=== PATIENT | male | born 1975 | race Caucasian/White ===

== ENCOUNTER → 2017-03-29 | Outpatient (CLI) | payer MEDICAID ==
--- NOTE | 2017-03-29 11:51 | FL ---
EXAMINATION TYPE: FL barium swallow w video DATE OF EXAM: 03/29/2017 MODIFIED SWALLOW / DEGLUTITION STUDY CLINICAL HISTORY: Dysphagia. GERD per order. Patient feels food is getting stuck upper esophagus. TECHNIQUE: Deglutition study is performed utilizing thin liquid barium, honey and nectar thick liqui d barium, barium thick applesauce, and barium coated cracker. A total 56 seconds of fluoroscopic time was utilized during procedure. 10 cine sequences are performed. 0 images are sent to PACS for interp retation. COMPARISON: None. FINDINGS: The oral and pharyngeal phases show satisfactory initiation and propagation with all modali ties tested. Normal mastication is seen with solid modalities tested. There is no evidence of penet ration or aspiration with any modality tested. No significant pharyngeal residue was appreciated. IMPRESSION: Normal deglutition study. Please refer to speech therapist notes for further details if necessary.
--- NOTE | 2017-03-29 11:53 | FL ---
EXAMINATION TYPE: FL UGI w esophagus DATE OF EXAM: 03/29/2017 COMPARISON: Abdominal x-ray and CT March 29, 2013. HISTORY: Dysphagia with heartburn and reflux. Symptoms of feeling food getting stuck upper esophagus for several weeks per patient. No improvement on reflux medication. TECHNIQUE: A double contrast UGI study is performed. A total of 49 seconds of fluoroscopic time was utilized during procedure. 26 spot images are obtained during procedure. FINDINGS: Photographic Reproduction Technician image of the abdomen shows no gross abnormality. The esophagus shows satisfactory motility and emptying into the stomach. No evidence of significant fixed hiatal hernia or stricture noted. Small sliding hiatal hernia is seen during flat prone imagin g. No abnormal outpouching or diverticulum identified. The stomach shows satisfactory distensibility, peristalsis, and mucosal folds. No evidence of any ma ss or ulcer disease. No significant gastroesophageal reflux was seen during real time performance of this study. The duodenal bulb, sweep, and proximal small bowel loops are unremarkable. IMPRESSION: No significant finding is seen to account for patient's symptoms with particular attentio n to the upper esophagus at area of patient concern.
== END | disposition home or self-care (01) ==
LOC: RADFLMAIN 10:11
PROVIDERS: ATTEND Nurse Practitioner Family
DX: R47.02 Dysphasia (principal); K21.9 Gastro-esophageal reflux disease without esophagitis; R13.10 Dysphagia, unspecified
CPT/HCPCS: 74230; 74240

== ENCOUNTER 2017-05-11 11:40 | Day surgery (SDC) | payer MEDICAID ==
[2017-05-09 09:55] VITALS: BMI 29.9
[~2017-05-11 11:40] MED LIST: LACTATED RINGERS 1,000 ML IV SCH
[2017-05-11 12:38] VITALS: RESP 16; TEMP 98.5
[2017-05-11] MEDS ORDERED: LIDOCAINE 1% 20 ML VIAL (10MG/ML) FOR IV START INTRADERMA ONE (12:44)
[2017-05-11] MEDS ORDERED: PROPOFOL 10 MG/ML 20 ML VIAL IV ONE (13:17)
--- NOTE | 2017-05-11 13:50 | P.PCN ---
Date of Procedure: 05/11/17 Procedure(s) Performed: Procedure: Esophagogastroduodenoscopy and biopsy. Preoperative diagnosis: Dysphagia. Postoperative diagnosis: Small sliding hiatal hernia with no obvious esophagitis or complicated reflux disease. Mild antral gastritis. Multiple biopsies obtained from the duodenum, antrum and esophagus. Operation and sedation: Was provided by anesthesia. Brief clinical history: The patient is a 42-year-old male who is scheduled for this evaluation because of issues with dysphagia that has been experiencing for the last few months with no alarm symptoms. His barium evaluation was negative. This evaluation is to assess for esophagitis, complicated reflux disease or other pathology. Procedure: With the patient on his left lateral decubitus position and after informed consent and adequate sedation, I passed the Olympus-GIF 160 video upper endoscope through the cricopharyngeus down the esophagus. The esophagus did not show any obvious erosions or ulcers. There were no strictures or Conrad's esophagus. There was a small sliding hiatal hernia then the endoscope was passed into the stomach which was insufflated with air and inspected in detail including the retroflex view in the cardia. There was some mottling and erythema in the antrum but there were no ulcers or bleeding. Pyloric channel did not show any ulcers. Duodenal bulb, post bulbar area and descending duodenum appeared within normal limits. Because of his symptoms, I obtained biopsies from the duodenum, antrum and esophagus then the endoscope was withdrawn. The patient tolerated the procedure well. Plan: The patient was reassured. Will await biopsy results and make further recommendations based on his course and biopsy results. He will follow up with you as planned.
[2017-05-11 14:03] VITALS: PULSE 80
[2017-05-11 14:17] VITALS: BP 143/97
== END 2017-05-11 14:24 | disposition home or self-care (01) ==
LOC: ORWHC2ENDO 11:40
DX: K31.9 Disease of stomach and duodenum, unspecified (principal); K44.9 Diaphragmatic hernia without obstruction or gangrene; R13.10 Dysphagia, unspecified; K21.0 Gastro-esophageal reflux disease with esophagitis; Z79.899 Other long term (current) drug therapy; Z88.6 Allergy status to analgesic agent; Z88.0 Allergy status to penicillin; Z91.013 Allergy to seafood
CPT/HCPCS: 88305; 43239; J2704

== ENCOUNTER 2017-09-15 13:56 | Emergency (ER) | payer MEDICAID ==
[2017-09-15 14:16] VITALS: TEMP 98.4
--- NOTE | 2017-09-15 15:17 | ED ---
General Adult HPI - General Chief complaint: Eye Problems Stated complaint: left eye visual disturbances Time Seen by Provider: 09/15/17 15:16 Source: patient, RN notes reviewed, old records reviewed Mode of arrival: ambulatory Limitations: no limitations - History of Present Illness Initial comments: This is a 42-year-old male the ER for evaluation of alteration of vision. Left eye vision issues. Patient has no prior history of similar complaint. Patient has had halo sales in his left eye feels that been on-and-off. No headaches. No loss of vision. No pain in his left eye. No trauma. Patient does not look contacts. No fevers - Related Data Home Medications Medication Instructions Recorded Confirmed Ranitidine HCl [Zantac] 150 mg PO DAILY PRN 05/09/17 09/15/17 Ibuprofen [Motrin Ib] 400 mg PO Q6H PRN 09/15/17 09/15/17 Allergies Allergy/AdvReac Type Severity Reaction Status Date / Time iodine Allergy Unknown Verified 09/15/17 15:25 Penicillins Allergy Rash/Hives Verified 09/15/17 15:25 shellfish derived [Shellfish] Allergy Dyspnea,THROAT Verified 09/15/17 15:25 SWELLING Review of Systems ROS Statement: Those systems with pertinent positive or pertinent negative responses have been documented in the HPI. ROS Other: All systems not noted in ROS Statement are negative. Past Medical History Past Medical History: GERD/Reflux Additional Past Medical History / Comment(s): "TROUBLE SWALLOWING" History of Any Multi-Drug Resistant Organisms: None Reported Additional Past Surgical History / Comment(s): EGD,COLONOSCOPY, LASER EYE SURGERY Past Anesthesia/Blood Transfusion Reactions: Motion Sickness Past Psychological History: No Psychological Hx Reported Smoking Status: Never smoker Past Alcohol Use History: Occasional Past Drug Use History: None Reported - Past Family History Mother Family Medical History: Deep Vein Thrombosis (DVT) General Exam Limitations: no limitations General appearance: alert, in no apparent distress Head exam: Present: atraumatic, normocephalic, normal inspection Eye exam: Present: normal appearance, PERRL, EOMI. Absent: scleral icterus, conjunctival injection, periorbital swelling ENT exam: Present: normal exam, mucous membranes moist Neck exam: Present: normal inspection. Absent: tenderness, meningismus, lymphadenopathy Respiratory exam: Present: normal lung sounds bilaterally. Absent: respiratory distress, wheezes, rales, rhonchi, stridor Cardiovascular Exam: Present: regular rate, normal rhythm, normal heart sounds. Absent: systolic murmur, diastolic murmur, rubs, gallop, clicks GI/Abdominal exam: Present: soft, normal bowel sounds. Absent: distended, tenderness, guarding, rebound, rigid Extremities exam: Present: normal inspection, full ROM, normal capillary refill. Absent: tenderness, pedal edema, joint swelling, calf tenderness Back exam: Present: normal inspection Neurological exam: Present: alert, oriented X3, CN II-XII intact Psychiatric exam: Present: normal affect, normal mood Skin exam: Present: warm, dry, intact, normal color. Absent: rash Course Vital Signs 09/15/17 09/15/17 14:13 16:52 Temperature 98.4 F 98.4 F Pulse Rate 75 67 Respiratory 18 16 Rate Blood Pressure 124/83 140/91 O2 Sat by Pulse 97 98 Oximetry Medical Decision Making - Medical Decision Making 42 male the ER for evaluation of left eye with halo some floaters. I pressures are checked, exam is normal. Patient is told to follow up with ophthalmology, did see with ophthalmology will make appointment for patient on Monday or and patient's earliest convenience Disposition Clinical Impression: Vitreous hemorrhage, Blurry vision Disposition: HOME SELF-CARE Condition: Good Instructions: Blurred Vision (ED) Is patient prescribed a controlled substance at d/c from ED?: No Referrals: Lelia Latham DO [Primary Care Provider] - 1-2 days Chilango Begum MD [STAFF PHYSICIAN] - 1-2 days
[2017-09-15 16:54] VITALS: BP 140/91; PULSE 67; RESP 16
== END 2017-09-15 16:45 | disposition home or self-care (01) ==
LOC: EC 13:56
DX: H43.12 Vitreous hemorrhage, left eye (principal); Z88.0 Allergy status to penicillin; Z91.013 Allergy to seafood; Z91.048 Other nonmedicinal substance allergy status; Z98.890 Other specified postprocedural states
CPT/HCPCS: 99283

== ENCOUNTER 2018-07-09 08:23 | Day surgery (SDC) | payer MEDICAID ==
[2018-07-05 09:11] VITALS: BMI 29.9
[~2018-07-09 08:23] MED LIST changes: +LIDOCAINE 1% 20 ML VIAL (10MG/ML) FOR IV START INTRADERMA PRN
[2018-07-09 08:48] VITALS: TEMP 97.2
[2018-07-09] MEDS ORDERED: PROPOFOL 10 MG/ML 20 ML VIAL IV ONE (10:03)
[2018-07-09] MEDS ORDERED: LIDOCAINE 1% INJ 10MG/ML (20 ML MDV) ONE (10:03)
--- NOTE | 2018-07-09 10:28 | P.PCN ---
Date of Procedure: 07/09/18 Procedure(s) Performed: Procedure: Esophagogastroduodenoscopy and biopsy. Preoperative diagnosis: Epigastric and left upper quadrant pain. Postoperative diagnosis: 1. Small sliding hiatal hernia with no definite esophagitis or complicated reflux disease. 2. Mild gastritis. 3. Multiple biopsies obtained from the duodenum, antrum and esophagus. Preparation and sedation: Was provided by anesthesia. Brief clinical history: The patient is a 43-year-old male with history of chronic reflux requiring acid suppressive therapy who is scheduled for this evaluation because of epigastric and left upper quadrant pain. The patient had a prior evaluation in April 2017 for dysphagia and that showed a small sliding hiatal hernia and mild antral gastritis. Biopsies at that time showed [id number] changes of reflux esophagitis. Procedure: With the patient on his left lateral decubitus position and after informed consent and adequate sedation, I passed the Olympus-GIF H 190 video upper endoscope through the cricopharyngeus down the esophagus. GE junction was around 38-39 cm from the incisors and there was a small sliding hiatal hernia but no obvious esophagitis or complicated reflux disease. The endoscope was then passed into the stomach which was insufflated with air and inspected in detail including the retroflex view in the cardia. There was some mottling and erythema in the antrum but no ulcers or erosions. Occasional small regenerative type polyp was seen in the gastric body. Pyloric channel did not show any ulcers. Duodenal bulb, post bulbar area and descending duodenum appeared essentially within normal limits. I obtained biopsies from the duodenum, antrum and esophagus then the endoscope was withdrawn. The patient tolerated the procedure well. Plan: The patient was reassured. Will await biopsy results and make further recommendations based on his course and biopsy results. He will follow up with you as planned and I will be happy to see in the office of his symptoms persist.
[2018-07-09 10:49] VITALS: BP 114/78; PULSE 80; RESP 18
== END 2018-07-09 10:51 | disposition home or self-care (01) ==
LOC: ORWHC2ENDO 08:23
DX: K29.80 Duodenitis without bleeding (principal); K29.70 Gastritis, unspecified, without bleeding; K44.9 Diaphragmatic hernia without obstruction or gangrene; K21.0 Gastro-esophageal reflux disease with esophagitis; Z88.0 Allergy status to penicillin; Z91.013 Allergy to seafood; Z91.048 Other nonmedicinal substance allergy status; Z79.899 Other long term (current) drug therapy
CPT/HCPCS: 88305; 43239; J2001; J2704

== ENCOUNTER 2021-12-14 08:17 | Day surgery (SDC) | payer MEDICAID ==
[~2021-12-14 08:17] MED LIST changes: -LIDOCAINE 1% 20 ML VIAL (10MG/ML) FOR IV START INTRADERMA PRN
[2021-12-14 08:56] VITALS: RESP 16; TEMP 97
[2021-12-14] MEDS ORDERED: PROPOFOL 10 MG/ML 20 ML VIAL IV ONE (09:39)
[2021-12-14] MEDS ORDERED: LIDOCAINE 2% INJ 20 MG/ML (2 ML VIAL) ONE (09:39)
--- NOTE | 2021-12-14 09:58 | P.PCN ---
Date of Procedure: 12/14/21 Procedure(s) Performed: BRIEF HISTORY: Patient is a 46-year-old pleasant white male scheduled for an elective colonoscopy as a part of screening for colorectal neoplasia PROCEDURE PERFORMED: Colonoscopy with biopsy. PREOPERATIVE DIAGNOSIS: Screening for colon cancer. IV sedation per Anesthesia. PROCEDURE: After informed consent was obtained, the patient, was brought into the endoscopy unit. IV sedation was administered by Anesthesia under continuous monitoring. Digital rectal examination was normal. Initially the Olympus CF-160 flexible video colonoscope was then inserted in the rectum, gradually advanced into the cecum without any difficulty. Careful examination was performed as the scope was gradually being withdrawn. Ileocecal valve and the appendiceal orifice were visualized and appeared normal. Prep was excellent. Mucosa of the cecum, ascending colon, transverse colon, appeared normal. The descending colon there was a 5 limited polyp that was removed by cold biopsy. Rest of the descending colon, sigmoid colon, and rectum appeared normal. Retroflexion was performed in the rectum and no lesions were seen. The patient tolerated the procedure well. IMPRESSION: 5 mm descending colon polyp status post cold biopsy Rest of the colon appeared normal. RECOMMENDATIONS: Findings of this examination were discussed with the patient as well as his family. He was advised to follow with the biopsy results. If the biopsy is adenoma he can have a repeat colonoscopy in 5 years..
[2021-12-14 10:23] VITALS: BP 132/87; PULSE 70
== END 2021-12-14 10:42 | disposition home or self-care (01) ==
LOC: ORWHC2ENDO 08:17
PROVIDERS: ATTEND Internal Medicine Gastroenterology
DX: Z12.11 Encounter for screening for malignant neoplasm of colon (principal); D12.4 Benign neoplasm of descending colon; Z88.0 Allergy status to penicillin
CPT/HCPCS: 45380; 88305; J2704; J2001

== ENCOUNTER → 2021-12-15 | Outpatient (CLI) | payer MEDICAID ==
--- NOTE | 2021-12-15 11:58 | P.SLEEP ---
History of Present Illness DATE: 12/15/2021 CONSULTATION/NEW PATIENT EVALUATION HISTORY OF PRESENT ILLNESS/SLEEP-WAKE EVALUATION: 46 year old gentleman had been evaluated in the sleep center for possible obstructive sleep apnea hypopnea syndrome. During recent colonoscopy sleep apneas have been observed. SLEEP SCHEDULE: Usually sleep schedule on weekdays from 11.30 p.m. to 7 AM], during days of from 11 PM to 6 AM]. FALLING ASLEEP: No problems with falling asleep, no TV in bedroom]. DURING SLEEP:Patient snores, grinds his teeth, has episodes of heartburn. Positive history of awakenings with nocturia. ] No history of hypnogogical hallucinations, sleep paralysis, or cataplexy. DURING THE DAY/WAKE STATE: In the morning patient wake up tired, has difficulties to place attention]. Peever sleepiness scale i 6] Usually patient doesn't take naps]. PAST MEDICAL HISTORY: Acid reflux, headaches]. PAST SURGICAL HISTORY: Polyp have been removed during recent colonoscopy, results of biopsy pending]. MEDICATIONS: Protonix 40 mg once a day]. SOCIAL HISTORY: Negative for] smoking, alcohol consumption occasional. FAMILY HISTORY:Hypertension, hyperlipidemia]. REVIEW OF SYSTEMS:Snoring, awakenings from sleep]. No fevers. No double vision. No recent chest pain. No shortness of breath. No abdominal pain. No bleeding episodes. No blood in urine. No seizure episodes. PHYSICAL EXAMINATION: GENERAL: A pleasant patient without any distress. VITAL SIGNS: B 134/89] , HR71] , R 16] , weigh 218.4] pounds, heigh 5 ]bryce 10- 1/2 ]inches, body mass inde 30.8] . HEENT: PERRLA, EOMI. Evaluation of oropharynx showed tongue protrudes midline, low position of soft palate Mallampati 4]. NECK: Supple. No JVD. Thyroid is not palpable. 17-3/4] inches in circumference. LUNGS: Clear to percussion and to auscultation. Good air exchange. No wheezing or rhonchi. HEART: S1, S2 regular. No murmurs, gallops or rubs. ABDOMEN: Soft and nontender. Bowel sounds are present. No organomegaly appreciated. EXTREMITIES: No clubbing or cyanosis. TELETYPE OR VARITYPE KEYBOARD OPERATOR: Awake, alert, and oriented x3. Cranial nerves 2 to 7 intact. There is no fasciculation or atrophy noted. No focal deficits observed. ASSESSMENT: 1. Snoring, witnessed episodes of sleep apneas, extremely low position of soft palate Mallampati 4, wide neck 17-3/4 inches in circumference. Obstructive sleep apnea hypopnea syndrome]. 2. Mild obesity, borderline to overweight body mass index 30.8]. 3 acid reflux]. 4. Status post polyp removed during recent colonoscopy. Biopsy results pending]. 5 headaches]. PLAN: 1. Polysomnography for evaluation of patient's breathing during sleep. 2. CPAP/BiPAP titration if sleep study confirms obstructive sleep apnea- hypopnea syndrome. 3. Preferable position during sleep on the side. 4. No driving if patient feels any sleepiness. Patient is aware of civil and criminal liability for unsafe driving. 5. Sleep hygiene with regular sleep time for at least 7.5-8 hours. 6. Watching weight. Thank you very much for referring this patient for consultation. Sincerely, Christopher Valdes MD, PhD, FAASM. Diplomat of [place] [employer], Sleep Medicine Board by [place] [employer] [place] [employer] Cardiovascular Sonographer of [facility] [place] Past Medical History Past Medical History: GERD/Reflux Additional Past Medical History / Comment(s): PAIN IN LEFT SIDE OF ABD. History of Any Multi-Drug Resistant Organisms: None Reported Additional Past Surgical History / Comment(s): EGD,COLONOSCOPY, LASER EYE SURGERY Past Anesthesia/Blood Transfusion Reactions: No Reported Reaction Past Psychological History: No Psychological Hx Reported Past Alcohol Use History: Daily Past Drug Use History: None Reported - Past Family History Mother Family Medical History: Deep Vein Thrombosis (DVT) Medications and Allergies Home Medications Medication Instructions Recorded Confirmed Type Pantoprazole [Protonix] 1 tab PO DAILY 12/10/21 12/14/21 History Allergies Allergy/AdvReac Type Severity Reaction Status Date / Time Penicillins Allergy Severe Rash/Hives Verified 12/14/21 08:40 iodine Allergy Unknown Verified 12/14/21 08:40 shellfish derived [Shellfish] Allergy Dyspnea,THROAT Verified 12/14/21 08:40 SWELLING Sleep Note - Sleep Note Sleep Note: Temperature: Pulse Rate: Respiratory Rate: Blood Pressure: SpO2: Height: Weight: BMI: Neck Circumference:
== END ==
LOC: SLEEP 10:27
PROVIDERS: ATTEND Internal Medicine
DX: G47.33 Obstructive sleep apnea (adult) (pediatric) (principal); K21.9 Gastro-esophageal reflux disease without esophagitis; E66.9 Obesity, unspecified; Z68.30 Body mass index [BMI] 30.0-30.9, adult; R51.9 Headache, unspecified; Z90.49 Acquired absence of other specified parts of digestive tract; Z88.0 Allergy status to penicillin; Z88.8 Allergy status to other drugs, medicaments and biological substances; Z91.013 Allergy to seafood
CPT/HCPCS: 99211

== ENCOUNTER → 2022-03-16 | Outpatient (CLI) | payer MEDICAID ==
--- NOTE | 2022-03-16 17:11 | P.PN ---
Subjective DATE: [] FOLLOW UP VISIT. Patient with obstructive sleep apnea hypopnea syndrome return to sleep center for follow-up visit. Recently patient had sleep study which documented obstructive sleep apnea hypopnea syndrome. Patient was initiated on PAP therapy and today is first visit after treatment was started. I explain to the patient results of diagnostic polysomnogram and Pap titration. Patient was not able to use PAP equipment every night for the whole night, because some discomfort with the mask and condensation of water in the tube with gargling sounds. [place] [address] sleepiness scale is 5, which is normal. I checked information from PAP unit. PAP unit pressure 7-11 cm H2O. Usage is 30% and only 7 % for more then 4 hours, average 3 hours 13 minutes per night. Leak is 17.6 l/m, which is in acceptable range. Apnea Hypopnea Index is 1.5, which is normal. No snoring with CPAP. MEDICATIONS:1. Protonix 40 mg once a day During physical exam: GENERAL: A pleasant patient without any distress. VITAL SIGNS: BP 144/92, HR 93, RR 16 , weight 225.2, temperature 98.1, oxygen saturation at room air 98% . HEENT: PERRLA, EOMI.low position of soft palate, Mallapati 4 . NECK: Supple. No JVD. LUNGS: Clear to percussion and to auscultation. Good air exchange. No wheezing or rhonchi. HEART: S1, S2 regular. ABDOMEN: Soft and nontender.[] EXTREMITIES: No clubbing or cyanosis. METAL DOOR ASSEMBLER: Awake, alert, and oriented x3. No focal deficit. Impressions: 1. Obstructive sleep apnea-hypopnea syndrome in moderate range apnea-hypopnea index 15.2 with oxygen distress and 82.9%. Patient has difficulties to use CPAP related to condensation of water in the tube. Position of CPAP was not correct. Normal respiration on CPAP, no snoring with CPAP. 2. Acid reflux. 3. Overweight. 4. Headaches. 5. Status post polyp removed during recent colonoscopy. Plan: 1. Continue using PAP equipment every night for the whole night. 2. To change air filter at least 1-2 times per month. 3. PAP unit should stay lower then position of the head. 4. Advised patient to remove all remaining water from humidifier canister daily and make it dry after each usage. Refill canister with fresh distilled water before each usage. 5. Sleep hygiene with regular time in bed for at least 8 hours. 6. Precautions related to driving. No driving if feel any sleepiness. 7. I increased temperature in the tube to 82. 8. Follow up visit in 2 months or earlier if patient has any problems. 9. Watching weight. Thank you very much for allowing me to participate in the management of your patient. Christopher Valdes MD, PhD, FAASM. Diplomat of [place] [employer], Sleep Medicine Board by [place] [employer] Copy Center Specialist of [facility] [place]
== END ==
LOC: SLEEP 15:33
PROVIDERS: ATTEND Internal Medicine
DX: G47.33 Obstructive sleep apnea (adult) (pediatric) (principal); K21.9 Gastro-esophageal reflux disease without esophagitis; E66.3 Overweight; Z98.890 Other specified postprocedural states; R51.9 Headache, unspecified; Z88.0 Allergy status to penicillin; Z91.041 Radiographic dye allergy status; Z91.013 Allergy to seafood
CPT/HCPCS: 99212

== ENCOUNTER 2024-05-18 18:04 | Observation (INO) | payer MEDICAID ==
--- NOTE | 2024-05-18 18:27 | ED ---
Chest Pain HPI - General Chief Complaint: Chest Pain Stated Complaint: chest pain Time Seen by Provider: 05/18/24 18:10 Source: patient Mode of arrival: ambulatory Limitations: no limitations - History of Present Illness Initial Comments: 49-year-old male presenting with chief complaint of chest pain. Patient is having midsternal burning pain that he rates a 2 out of 10. This started a few hours ago. He also notes high blood pressure. States that his blood pressure and cholesterol have been "borderline" and he has been trying to manage them on his own without medication. He is having no shortness of breath, nausea, vomiting, headache, blurred vision. No alleviating or aggravating factors. No radiation of pain to the jaw or shoulder. No pleuritic pain. No cough, congestion, sore throat, fever, chills. - Related Data Home Medications Medication Instructions Recorded Confirmed No Known Home Medications 05/18/24 05/18/24 Allergies Allergy/AdvReac Type Severity Reaction Status Date / Time Penicillins Allergy Severe Rash/Hives Verified 05/18/24 19:42 iodine Allergy Unknown Verified 05/18/24 19:42 shellfish derived [Shellfish] Allergy Dyspnea,THROAT Verified 05/18/24 19:42 SWELLING Review of Systems ROS Statement: Those systems with pertinent positive or pertinent negative responses have been documented in the HPI. ROS Other: All systems not noted in ROS Statement are negative. Past Medical History Past Medical History: GERD/Reflux Additional Past Medical History / Comment(s): PAIN IN LEFT SIDE OF ABD. History of Any Multi-Drug Resistant Organisms: None Reported Additional Past Surgical History / Comment(s): EGD,COLONOSCOPY, LASER EYE SURGERY Past Anesthesia/Blood Transfusion Reactions: No Reported Reaction Past Psychological History: No Psychological Hx Reported Past Alcohol Use History: Daily Past Drug Use History: None Reported - Past Family History Mother Family Medical History: Deep Vein Thrombosis (DVT) General Exam Limitations: no limitations General appearance: alert, in no apparent distress Head exam: Present: atraumatic, normocephalic, normal inspection Eye exam: Present: normal appearance, EOMI Neck exam: Present: normal inspection. Absent: meningismus Respiratory exam: Present: normal lung sounds bilaterally. Absent: respiratory distress, wheezes, rales, rhonchi, stridor Cardiovascular Exam: Present: regular rate, normal rhythm, normal heart sounds. Absent: systolic murmur, diastolic murmur, rubs, gallop, clicks Extremities exam: Absent: pedal edema Neurological exam: Present: alert, oriented X3 Psychiatric exam: Present: normal affect, normal mood Skin exam: Present: warm, dry, intact, normal color Course Vital Signs 05/18/24 05/18/24 05/18/24 18:06 18:28 18:41 Temperature 97.9 F Pulse Rate 91 84 85 Respiratory 18 18 18 Rate Blood Pressure 191/112 173/99 154/95 O2 Sat by Pulse 99 99 98 Oximetry Chest Pain MDM - [facility] Sinus rhythm ventricular rate 89. CO interval 146. QRS 112. QT 339. QTc 385. Was pt. sent in by a medical professional or institution (, PA, [employer], urgent care, hospital, or assisted...) When possible be specific @ -No Did you speak to anyone other than the patient for history (EMS, parent, family, police, friend...)? What history was obtained from this source @ -No Did you review nursing and triage notes (agree or disagree)? Why? @ -I reviewed and agree with nursing and triage notes Were old charts reviewed (outside hosp., previous admission, EMS record, old EKG, old radiological studies, urgent care reports/EKG's, assisted records)? Report findings @ -No old charts were reviewed Differential Diagnosis (chest pain, altered mental status, abdominal pain women, abdominal pain men, vaginal bleeding, weakness, fever, dyspnea, syncope, headache, dizziness, GI bleed, back pain, seizure, CVA, palpatations, mental health, musculoskeletal)? @ -[facility] Differential Chest Pain: Stable Angina, Unstable Angina, STEMI, NSTEMI Aortic Dissection, Pneumothorax, Musculoskeletal, Esophageal Spasm GERD, Cholecystitis, Pancreatitis, Zoster This is not meant to be an all-inclusive list. EKG interpreted by me (3pts min.). @ -As above X-rays interpreted by me (1pt min.). @ -Chest x-ray shows no acute process CT interpreted by me (1pt min.). @ -None done U/S interpreted by me (1pt. min.). @ -None done What testing was considered but not performed or refused? (CT, X-rays, U/S, labs)? Why? @ -None What meds were considered but not given or refused? Why? @ -None Did you discuss the management of the patient with other professionals (professionals i.e. DrDalia, PA, [employer], lab, RT, psych nurse, social service director, lead radiation therapist, teacher, chief supply chain officer, caser in)? Give summary @ -Spoke with Regla Ward from [facility] who accepts admission Was smoking cessation discussed for >3mins.? @ -No Was critical care preformed (if so, how long)? @ -No Were there social determinants of health that impacted care today? How? (Homelessness, low income, unemployed, alcoholism, drug addiction, transportation, low edu. Level, literacy, decrease access to med. care, [facility], rehab)? @ -No Was there de-escalation of care discussed even if they declined (Discuss DNR or withdrawal of care, Hospice)? DNR status @ -No What co-morbidities impacted this encounter? (DM, HTN, Smoking, COPD, CAD, Cancer, CVA, ARF, Chemo, Hep., AIDS, mental health diagnosis, sleep apnea, morbid obesity)? @ -None Was patient admitted / discharged? Hospital course, mention meds given and route, prescriptions, significant lab abnormalities, going to OR and other pertinent info. @ -49-year-old male presenting with chief complaint of burning centralized chest pain. Reports that his blood pressure and cholesterol has been "borderline". History and physical examination are conducted. Lab work requires no immediate action. Negative troponin. Patient will be admitted for observation, repeat troponins and cardiology consult are ordered. Patient is agreeable with this plan. I discussed this case with my attending Dr. Wolf Undiagnosed new problem with uncertain prognosis? @ -No Drug Therapy requiring intensive monitoring for toxicity (Heparin, Nitro, Insulin, Cardizem)? @ -No Were any procedures done? @ -No Diagnosis/symptom? @ -Chest pain Acute, or Chronic, or Acute on Chronic? @ -Acute Uncomplicated (without systemic symptoms) or Complicated (systemic symptoms)? @ -Complicated Side effects of treatment? @ -No Exacerbation, Progression, or Severe Exacerbation? @ -No Poses a threat to life or bodily function? How? (Chest pain, [place], [place], pneumonia, PE, COPD, DKA, ARF, appy, cholecystitis, CVA, Diverticulitis, Homicidal, Suicidal, threat to staff... and all critical care pts) @ -Yes Disposition Clinical Impression: Chest pain Disposition: ADMITTED IP TO THIS HOSP Condition: Fair Referrals: Lelia Latham DO [Primary Care Provider] - 1-2 days Time of Disposition: 19:43
[2024-05-18] MEDS: ASPIRIN 81 MG PO STA (18:31)
[2024-05-18] MEDS: LABETALOL 5 MG/ML VIAL MDV IVP STA (18:32)
[2024-05-18 18:49] LABS: Partial Thromboplastin Time 23.7 sec (22.0-30.0); Prothrombin Time 10.9 sec (10.0-12.5)
[2024-05-18 18:49] LABS: Appearance,Urine Clear (Clear); Bilirubin,Urine Negative (Negative); Blood,Urine Negative (Negative); Color,Urine Colorless; Glucose,Urine (UA) Negative (Negative); Ketones,Urine Negative (Negative); Leukocyte Esterase,Urine Negative (Negative); Nitrite,Urine Negative (Negative); PH, Urine 6.5 (5.0-8.0); Protein,Urine Negative (Negative); Specific Gravity,Urine 1.016 (1.001-1.035); Urobilinogen,Urine <2.0 mg/dL (<2.0)
[2024-05-18 18:50] LABS: HCT 49.2 % (39.0-53.0); HGB 15.8 gm/dL (13.0-17.5); MCH 28.7 pg (25.0-35.0); MCHC 32.2 g/dL (31.0-37.0); MCV 89.3 fL (80.0-100.0); Mean Platelet Volume 6.8; Platelet Count 197 k/uL (150-450); RBC 5.51 m/uL (4.30-5.90); RDW 12.4 % (11.5-15.5); WBC 6.3 k/uL (3.8-10.6)
[2024-05-18 18:51] LABS: ALT 34 U/L (4-49); AST 26 U/L (17-59); African American GFR (CKD) 89 (>60 ml/min/1.73 sqM); Albumin 4.3 g/dL (3.5-5.0); Alkaline Phosphatase 51 U/L (38-126); Anion Gap 9 mmol/L; Blood Urea Nitrogen 22 mg/dL (9-20); Calcium 9.4 mg/dL (8.4-10.2); Carbon Dioxide 25 mmol/L (22-30); Chloride 102 mmol/L (98-107); Glucose 100 mg/dL (74-99); Lipase 75 U/L (23-300); Magnesium 1.9 mg/dL (1.6-2.3); Non-African American GFR(CKD) 77 (>60 ml/min/1.73 sqM); Potassium 4.2 mmol/L (3.5-5.1); Sodium 136 mmol/L (137-145); Total Bilirubin 0.6 mg/dL (0.2-1.3); Total Protein 7.3 g/dL (6.3-8.2)
--- NOTE | 2024-05-18 18:53 | XR ---
EXAMINATION TYPE: XR chest 2V DATE OF EXAM: 05/18/2024 6:49 PM COMPARISON: None. CLINICAL INDICATION: Male, 49 years old with history of Chest Pain; [facility] TECHNIQUE: XR chest 2V Frontal and lateral views of the chest. FINDINGS: Lungs/Pleura: There is no evidence of pleural effusion, focal consolidation, or pneumothorax. Pulmonary vascularity: Unremarkable. Heart/mediastinum: Cardiomediastinal silhouette is unremarkable. Musculoskeletal: No acute osseous pathology. Other findings: None IMPRESSION: No acute cardiopulmonary disease/process. [facility], , 05/18/2024 6:51 PM
[2024-05-18 19:01] LABS: Eosinophils # (M) 0.19 k/uL (0-0.7); Lymphocytes # (M) 2.14 k/uL (1.0-4.8); Monocytes # (M) 0.69 k/uL (0-1.0); Neutrophils # (M) 3.28 k/uL (1.3-7.7); Neutrophils % (M) 52 %; Nucleated Red Blood Cells 0 /100 WBC (0-0); Total Cells Counted 100
[2024-05-18 19:02] LABS: RBC Morphology Normal
[2024-05-18] MEDS ORDERED: NALOXONE 0.4 MG/ML 1 ML VIAL IV PRN (19:39)
[2024-05-19] MEDS: PANTOPRAZOLE 40 MG TABLET PO SCH (13:34)
--- NOTE | 2024-05-19 16:48 | P.CRDCN ---
History of Present Illness Consult date: 05/19/24 Consult reason: chest pain, hypertension Chief complaint: High blood pressure and chest pain History of present illness: History of present illness: Patient is a pleasant 49-year-old male with no significant past medical history who presented with chest pain and elevated blood pressure. He does not follow with a efficiency miner. He reports family history of father having heart stents in his 40s and mom having hypertension. He is not on any medications at home. He states he was out shopping and going to dinner last night when he developed a chest burning sensation that was progressively getting worse. He denies having any associated symptoms of diaphoresis, nausea, shortness of breath. He had bought a blood pressure cuff while he was out shopping and blood pressure was 185/100s. He states his chest pain continued until he had aspirin in the emergency department, he was not given any nitro. He states over the past few months he has noticed feeling more short of breath with exertion climbing 2 flights of stairs and not having as much energy in general. He has not had any prior cardiac workup. Labs reviewed: Troponin negative x 3, creatinine 1.1, potassium 4.2, magnesium 1.9, hemoglobin 15.8. EKG shows sinus rhythm. Chest x-ray with no acute findings. He is feeling better and denies any chest pain or pressure. He states he does not smoke but does drink alcohol, more than he should. He does not want to be on medications if possible as he does not believe he will be compliant with them. LDL previously 142. REVIEW OF SYSTEMS: No fever or chills. No cough or expectoration. No diaphores is. Patient denies headache, dizziness, blurred vision, double vision. Patient denies any stomach discomfort. No nausea, vomiting. No hematochezia. No hematemesis. Denies any black stools or blood in his stools. Denies dysuria or hematuria. No muscle weakness or numbness. No chest pain or pressure. PHYSICAL EXAMINATION: This is a 49-year-old male in no apparent distress at the time of my examination. HEENT: Head is atraumatic, normocephalic. Pupils are equal, round. Sclerae anicteric. Conjunctivae are clear. Mucous membranes of the mouth are moist. Neck is supple. There is no jugular venous distention. No carotid bruit is heard. CHEST EXAMINATION: Lungs are clear to auscultation. No chest wall tenderness is noted on palpation or with deep breathing. HEART EXAMINATION: Heart regular rate and rhythm. S1, S2 heard. No murmurs, gallops or rub. ABDOMEN: Soft, nontender. Bowel sounds are heard. No organomegaly noted. EXTREMITIES: 2+ peripheral pulses with no evidence of peripheral edema and no calf tenderness noted. NEUROLOGIC EXAMINATION: Patient is awake, alert and oriented x3. IMPRESSION AND PLAN: Elevated blood pressure Chest pain Family history of CAD Shortness of breath PLAN: We will check echocardiogram to evaluate heart function and structure. Check stress echo to rule out inducible ischemia. Start losartan 25 mg and monitor blood pressure. Consider CT calcium score as an outpatient. Further recommendations pending testing. I am dictating on behalf of Dr. Shaheed Sosa's history/physical and assessment/plan. Past Medical History Past Medical History: GERD/Reflux Additional Past Medical History / Comment(s): PAIN IN LEFT SIDE OF ABD. History of Any Multi-Drug Resistant Organisms: None Reported Additional Past Surgical History / Comment(s): EGD, COLONOSCOPY, LASER EYE SURGERY Past Anesthesia/Blood Transfusion Reactions: No Reported Reaction Past Psychological History: No Psychological Hx Reported Smoking Status: Never smoker Past Alcohol Use History: Daily Past Drug Use History: None Reported - Past Family History Mother Family Medical History: Deep Vein Thrombosis (DVT) Medications and Allergies Home Medications Medication Instructions Recorded Confirmed Type Pantoprazole [Protonix] 40 mg PO AC-BRKFST #30 tab 05/19/24 Rx Allergies Allergy/AdvReac Type Severity Reaction Status Date / Time Penicillins Allergy Severe Rash/Hives Verified 05/18/24 19:42 iodine Allergy Unknown Verified 05/18/24 19:42 shellfish derived [Shellfish] Allergy Dyspnea,THROAT Verified 05/18/24 19:42 SWELLING Physical Exam Vitals: Vital Signs Temp Pulse Pulse Resp BP BP Pulse Ox 05/19/24 07:00 98.4 F 90 16 154/91 94 L 05/19/24 01:30 97.4 F L 68 16 131/80 98 05/18/24 23:13 65 05/18/24 22:50 98.1 F 65 18 151/90 98 05/18/24 20:41 79 18 153/102 97 05/18/24 18:41 85 18 154/95 98 05/18/24 18:28 84 18 173/99 99 05/18/24 18:06 97.9 F 91 18 191/112 99 Intake and Output 05/18/24 05/19/24 05/19/24 22:59 06:59 14:59 Other: # Voids 1 Weight 97.522 kg Results 05/18/24 18:30 05/18/24 18:30 Cardiac Enzymes 05/18/24 05/18/24 05/18/24 Range/Units 18:30 18:30 21:17 AST 26 (17-59) U/L Troponin I <0.012 <0.012 (0.000-0.034) ng/mL 05/18/24 Range/Units 23:23 AST (17-59) U/L Troponin I <0.012 (0.000-0.034) ng/mL Coagulation 05/18/24 Range/Units 18:30 PT 10.9 (10.0-12.5) sec APTT 23.7 (22.0-30.0) sec CBC 05/18/24 Range/Units 18:30 WBC 6.3 (3.8-10.6) k/uL RBC 5.51 (4.30-5.90) m/uL Hgb 15.8 (13.0-17.5) gm/dL Hct 49.2 (39.0-53.0) % Plt Count 197 (150-450) k/uL Comprehensive Metabolic Panel 05/18/24 Range/Units 18:30 Sodium 136 L (137-145) mmol/L Potassium 4.2 (3.5-5.1) mmol/L Chloride 102 (98-107) mmol/L Carbon Dioxide 25 (22-30) mmol/L BUN 22 H (9-20) mg/dL Creatinine 1.13 (0.66-1.25) mg/dL Glucose 100 H (74-99) mg/dL Calcium 9.4 (8.4-10.2) mg/dL AST 26 (17-59) U/L ALT 34 (4-49) U/L Alkaline Phosphatase 51 (38-126) U/L Total Protein 7.3 (6.3-8.2) g/dL Albumin 4.3 (3.5-5.0) g/dL Current Medications Generic Name Dose Route Start Last Admin Trade Name Freq PRN Reason Stop Dose Admin Naloxone HCl 0.2 mg 05/18/24 19:39 Naloxone 0.4 Mg/Ml 1 Ml Vial IV Q2M PRN Opioid Reversal Intake and Output 05/18/24 05/19/24 05/19/24 22:59 06:59 14:59 Other: # Voids 1 Weight 97.522 kg 05/18/24 18:30 05/18/24 18:30
[2024-05-19] MEDS: LOSARTAN 25 MG TAB PO SCH (17:14)
[2024-05-19] MEDS: SODIUM CHLORIDE 0.9% 1,000 ML IV SCH (17:15)
--- NOTE | 2024-05-20 04:55 | P.HPIM ---
History of Present Illness H&P Date: 05/19/24 This is a pleasant 49-year-old male who presented to the emergency department with chest pain noted to have elevated blood pressure. Patient reports he has a past medical history of GERD, alcohol use and obesity with no other significant past medical history. Patient reported having some chest pain that was burning in nature and persisted and who is a nurse brought him to the ER for furth er evaluation. Cardiology placed on consult and 2D echo was ordered. Will initiate Protonix and await cardiology evaluation as patient reports the chest pain has subsided. Given patient's symptoms and risk factors, likely will be undergoing a stress test although will await official cardiology evaluation. REVIEW OF SYSTEMS: CONSTITUTIONAL: No fever, no malaise, no fatigue. HEENT: No recent visual problems or hearing problems. Denied any sore throat. CARDIOVASCULAR: Reported burning chest pain associated with some shortness of breath but has improved since, orthopnea, PND, no palpitations, no syncope. PULMONARY: No shortness of breath, no cough, no hemoptysis. GASTROINTESTINAL: No diarrhea, no nausea, no vomiting, no abdominal pain. NEUROLOGICAL: No headaches, no weakness, no numbness. HEMATOLOGICAL: Denies any bleeding or petechiae. GENITOURINARY: Denies any burning micturition, frequency, or urgency. MUSCULOSKELETAL/RHEUMATOLOGICAL: Denies any joint pain, swelling, or any muscle pain. ENDOCRINE: Denies any polyuria or polydipsia. The rest of the 14-point review of systems is negative. PHYSICAL EXAMINATION: GENERAL: The patient is alert and oriented x3, not in any acute distress. Well developed, well nourished. Obese HEENT: Pupils are round and equally reacting to light. EOMI. No scleral icterus. No conjunctival pallor. Normocephalic, atraumatic. No pharyngeal erythema. No thyromegaly. CARDIOVASCULAR: S1 and S2 present. No murmurs, rubs, or gallops. PULMONARY: Chest is clear to auscultation, no wheezing or crackles. ABDOMEN: Soft, nontender, nondistended, normoactive bowel sounds. No palpable organomegaly. MUSCULOSKELETAL: No joint swelling or deformity. EXTREMITIES: No cyanosis, clubbing, or pedal edema. NEUROLOGICAL: Gross neurological examination did not reveal any focal deficits. SKIN: No rashes. Assessment: Chest pain, ruled out ACS, troponins are negative Hypertension, likely has been ongoing Obesity with a BMI of 30 Daily alcohol use History of GERD GI prophylaxis DVT prophylaxis Full code Plan: Patient was admitted for chest pain continued on telemetry monitoring and troponins were negative. Patient was evaluated by cardiology Dr. Sosa recommending initiating low-dose losartan for blood pressure control his blood p ressures have been elevated. Cardiology recommending stress testing and will undergo stress test tomorrow morning 05/20/2024. Patient will be n.p.o. at midnight Will add Protonix Discussed risk factors including lifestyle modifications extensively. Continue gentle hydration and will follow-up with repeat labs and await cardiology stress testing. If negative patient will be discharged home The impression and plan of care has been dictated by Regla Ward, Nurse Practitioner as directed. Dr. Melida MD I have performed a history and examination and MDM of this patient, discussed the same with the dictator, and agree with the dictator's assessment and plan as written ,documented as a scribe. Based on total visit time, I have performed more than 50% of the visit. Past Medical History Past Medical History: GERD/Reflux Additional Past Medical History / Comment(s): PAIN IN LEFT SIDE OF ABD. History of Any Multi-Drug Resistant Organisms: None Reported Additional Past Surgical History / Comment(s): EGD, COLONOSCOPY, LASER EYE SURGERY Past Anesthesia/Blood Transfusion Reactions: No Reported Reaction Past Psychological History: No Psychological Hx Reported Smoking Status: Never smoker Past Alcohol Use History: Daily Past Drug Use History: None Reported - Past Family History Mother Family Medical History: Deep Vein Thrombosis (DVT) Medications and Allergies Home Medications Medication Instructions Recorded Confirmed Type Pantoprazole [Protonix] 40 mg PO AC-BRKFST #30 tab 05/19/24 Rx Allergies Allergy/AdvReac Type Severity Reaction Status Date / Time Penicillins Allergy Severe Rash/Hives Verified 05/18/24 19:42 iodine Allergy Unknown Verified 05/18/24 19:42 shellfish derived [Shellfish] Allergy Dyspnea,THROAT Verified 05/18/24 19:42 SWELLING Physical Exam Vitals: Vital Signs Temp Pulse Pulse Resp BP BP Pulse Ox 05/19/24 01:30 97.4 F L 68 16 131/80 98 05/18/24 23:13 65 05/18/24 22:50 98.1 F 65 18 151/90 98 05/18/24 20:41 79 18 153/102 97 05/18/24 18:41 85 18 154/95 98 05/18/24 18:28 84 18 173/99 99 05/18/24 18:06 97.9 F 91 18 191/112 99 Intake and Output 05/18/24 05/19/24 05/19/24 22:59 06:59 14:59 Other: # Voids 1 Weight 97.522 kg Results CBC & Chem 7: 05/18/24 18:30 05/18/24 18:30 Labs: Abnormal Lab Results - Last 24 Hours (Table) 05/18/24 Range/Units 18:30 Sodium 136 L (137-145) mmol/L BUN 22 H (9-20) mg/dL Glucose 100 H (74-99) mg/dL Thrombosis Risk Factor Assmnt - Choose All That Apply Any of the Below Risk Factors Present?: Yes Each Factor Represents 1 point: Age 41-60 years, Obesity (BMI >25) Other Risk Factors: No Other congenital or acquired thrombophilia - If yes, enter type in comment: No Thrombosis Risk Factor Assessment Total Risk Factor Score: 2 Thrombosis Risk Factor Assessment Level: Low Risk
[2024-05-20 07:55] LABS: Chol/HDL Ratio 6.18 Ratio; LDL Cholesterol,Calculated 138.3 mg/dL (0.0-131.0)
--- NOTE | 2024-05-20 10:28 | P.PN ---
Subjective Progress Note Date: 05/20/24 Consult reason: chest pain, hypertension Chief complaint: High blood pressure and chest pain History of present illness: Patient is a pleasant 49-year-old male with no significant past medical history who presented with chest pain and elevated blood pressure. He does not follow with a bookmobile librarian. He reports family history of father having heart stents in his 40s and mom having hypertension. He is not on any medications at home. He states he was out shopping and going to dinner last night when he developed a chest burning sensation that was progressively getting worse. He denies having any associated symptoms of diaphoresis, nausea, shortness of breath. He had bought a blood pressure cuff while he was out shopping and blood pressure was 185/100s. He states his chest pain continued until he had aspirin in the em ergency department, he was not given any nitro. He states over the past few months he has noticed feeling more short of breath with exertion climbing 2 flights of stairs and not having as much energy in general. He has not had any prior cardiac workup. Labs reviewed: Troponin negative x 3, creatinine 1.1, potassium 4.2, magnesium 1.9, hemoglobin 15.8. EKG shows sinus rhythm. Chest x-ray with no acute findings. He is feeling better and denies any chest pain or pressure. He states he does not smoke but does drink alcohol, more than he should. He does not want to be on medications if possible as he does not believe he will be compliant with them. LDL previously 142. 3/3 Patient seen and examined. Patient is scheduled for stress echocardiogram and echocardiogram today. Patient denies having chest pain. He states he is normally quite active at home without chest pain. Blood pressure 129/81, heart rate 74 and pulse ox 98% on room air. Triglycerides 197, cholesterol 212 LDL 138. Patient started on a statin. PHYSICAL EXAMINATION: This is a 49-year-old male in no apparent distress at the time of my examination. HEENT: Head is atraumatic, normocephalic. Pupils are equal, round. Sclerae anicteric. Conjunctivae are clear. Mucous membranes of the mouth are moist. Neck is supple. There is no jugular venous distention. No carotid bruit is heard. CHEST EXAMINATION: Lungs are clear to auscultation. No chest wall tenderness is noted on palpation or with deep breathing. HEART EXAMINATION: Heart regular rate and rhythm. S1, S2 heard. No murmurs, gallops or rub. ABDOMEN: Soft, nontender. Bowel sounds are heard. No organomegaly noted. EXTREMITIES: 2+ peripheral pulses with no evidence of peripheral edema and no calf tenderness noted. NEUROLOGIC EXAMINATION: Patient is awake, alert and oriented x3. IMPRESSION AND PLAN: Elevated blood pressure Chest pain Family history of CAD Shortness of breath Hyperlipidemia PLAN: Obtain 2D echocardiogram Obtain stress echocardiogram today Patient has been started on losartan for blood pressure Start patient on a atorvastatin for hyperlipidemia Consider CT calcium score as an outpatient. If stress testing is unremarkable, patient is cleared for discharge from cardiology and will follow-up in the office with Dr. Sosa in 1 to 2 weeks. Nurse practitioner note has been reviewed, I agree with documented findings and plan of care. Patient was seen and examined. Objective - Vital Signs Vital signs: Vital Signs Temp 97.4 F L 05/20/24 00:47 Pulse 64 05/20/24 00:47 Resp 18 05/20/24 00:47 BP 106/68 05/20/24 00:47 Pulse Ox 97 05/20/24 00:47 FiO2 Intake & Output 05/19/24 05/20/24 05/20/24 18:59 06:59 18:59 Intake Total 118 Balance 118 Intake: Oral 118 Other: # Voids 3 2 - Labs CBC & Chem 7: 05/18/24 18:30 05/18/24 18:30
[2024-05-20 15:56] VITALS: BP 131/90; PULSE 83; RESP 16; TEMP 98.1
--- NOTE | 2024-05-20 17:23 | CA ---
Transthoracic Echo Report Name: Yo John Age: 49 Gender: M : 1975 Exam Date: 05/20/2024 08:17 Exam Location: [facility] Ht (in): 71 Wt (lb): 215 Ordering Physician: Belen Rubio Attending/Referring Phys: Dairy Inspector Emilee Diop RDCS Procedure CPT: Indications: chest pain, hypertension Cardiac Hx: Technical Quality: Fair Contrast 1: Definity Total Dose (mL): 2 Contrast 2: Total Dose (mL): MEASUREMENTS (Male / Female) Normal Values 2D ECHO LV Diastolic Diameter PLAX 5.0 cm 4.2 - 5.9 / 3.9 - 5.3 cm LV Systolic Diameter PLAX 3.5 cm IVS Diastolic Thickness 1.4 cm 0.6 - 1.0 / 0.6 - 0.9 cm LVPW Diastolic Thickness 1.2 cm 0.6 - 1.0 / 0.6 - 0.9 cm LV Relative Wall Thickness 0.5 RV Internal Dim ED PLAX 2.8 cm LA Systolic Diameter LX 4.6 cm 3.0 - 4.0 / 2.7 - 3.8 cm LV Diastolic Volume MOD BP 67.9 cm??? 67 - 155 / 56 - 104 cm??? LV Systolic Volume MOD BP 29.9 cm??? 22 - 58 / 19 - 49 cm??? LV Ejection Fraction MOD BP 55.9 % >= 55 % LV Cardiac Index MOD BP 1528.8 cm???/min???m??? LV Diastolic Volume MOD 4C 62.2 cm??? LV Systolic Volume MOD 4C 25.6 cm??? LV Ejection Fraction MOD 4C 58.8 % LV Cardiac Index MOD 4C 1473.2 cm???/min???m??? LV Diastolic Length 4C 8.2 cm LV Systolic Length 4C 5.9 cm LV Diastolic Volume MOD 2C 70.5 cm??? LV Systolic Volume MOD 2C 32.9 cm??? LV Ejection Fraction MOD 2C 53.4 % LV Cardiac Index MOD 2C 1517.9 cm???/min???m??? LV Diastolic Length 2C 7.8 cm LV Systolic Length 2C 6.4 cm M-MODE Aortic Root Diameter MM 3.1 cm LA Systolic Diameter MM 4.5 cm LA Ao Ratio MM 1.5 AV Cusp Separation MM 2.3 cm DOPPLER Mitral E Point Velocity 53.7 cm/s Mitral A Point Velocity 66.9 cm/s Mitral E to A Ratio 0.8 MV Deceleration Time 196.6 ms MV E' Velocity 6.3 cm/s Mitral E to MV E' Ratio 8.5 TR Peak Velocity 189.2 cm/s TR Peak Gradient 14.3 mmHg FINDINGS Left Ventricle Left ventricular ejection fraction is estimated at 55-60 %. Normal left ventricular systolic function with no obvious regional wall motion abnormalities. Left ventricular cavity size normal. Mildly increased left ventricular wall thickness. Right Ventricle Normal right ventricular size and function. Right ventricular systolic pressure within normal limits. Right Atrium Normal right atrial size. Left Atrium Mildly increased left atrial diameter. Mitral Valve Structurally normal mitral valve. Mild mitral regurgitation. No mitral stenosis. Aortic Valve Trileaflet aortic valve. No aortic valve stenosis or regurgitation. Tricuspid Valve Structurally normal tricuspid valve. Mild tricuspid regurgitation. No tricuspid stenosis. Pulmonic Valve Structurally normal pulmonic valve. Trace pulmonic regurgitation. No pulmonic stenosis. Pericardium No pericardial or pleural effusion. Aorta Normal size aortic root and proximal ascending aorta. CONCLUSIONS 1. Normal left ventricular size and systolic function 2. Mild mitral and tricuspid regurgitation with no evidence of pulmonary hypertension Previewed by: Dr. Emiliano River MD (Electronically Signed) Final Date: 20 May 2024 17:22
--- NOTE | 2024-05-20 17:58 | CA ---
Stress Echo Report Yo John Age: 49 Gender: M : 1975 Exam Date: 05/20/2024 13:27 Exam Location: [facility] Ht (in): 71 Wt (lb): 245 Ordering Physician: Belen Rubio Referring Physician: THANG TRIPLETT,, Oil Well Pumper: TATIANA GORDON Technologist Procedure CPT: Indication: Chest Pain ICD-9 Codes: Rhythm: Patient History: CP, HTN, FAMILY HX. Cardiac Medications: Medications in past 24 hours: Contrast: Stress Results Protocol: Riley Total dose(mL): Exercise Duration (min:sec): Max ST Depression (mm): Angina Score: Hughes Score: METS: 10.5 Resting HR: 82 Resting BP: / Peak HR: 162 Peak BP: 209 / 96 Max Predicted HR: 172 94 % Max Predicted HR Target HR: 146 Double Product: [id number] Stress Summary: The patient's target heart rate was achieved BP Response: Reason for Termination: MAX EXERTION/TARGET HR Cardiac Symptoms: NO SYMPTOMS ECG Analysis Resting ECG: Normal sinus rhythm, normal ECG Stress ECG: No abnormal ST/T wave changes with exercise Arrhythmia: None Echo Analysis Resting Echo: Normal resting echocardiogram. Peak Echo Analysis: Normal wall thickening and motion MEASUREMENTS (Male/Female) Normal Values CONCLUSIONS 1. Good exercise tolerance with normal electrocardiographic response to exercise 2. Normal stress echocardiogram with no evidence of stress induced ischemia Dr. Emiliano River MD (Electronically Signed) Final Date: 20 May 2024 17:57
[2024-05-20] MEDS ORDERED: ATORVASTATIN 40 MG TAB PO SCH (21:00)
--- NOTE | 2024-05-24 05:52 | P.DS ---
Providers Date of admission: 05/18/24 19:39 Expected date of discharge: 05/20/24 Attending physician: Ammy Chan Consults: 05/18/24 19:39 Consult Physician Urgent Consulting Provider: [facility] Consult Reason/Comments: chest pain Do you want consulting provider notified?: Yes, Notify in am Primary care physician: Lelia Jaimes Hospital Course: Final diagnosis Chest pain, ruled out ACS, troponins are negative, stress test was negative Hypertension, likely has been ongoing, being started on low-dose losartan Obesity with a BMI of 30 Daily alcohol use History of GERD GI prophylaxis DVT prophylaxis Full code Discharge disposition Patient is being discharged in a stable condition with guarded prognosis to home. Patient will follow-up with Dr. Jaimes in the outpatient setting upon discharge. Patient is to continue with current medications and outpatient follow-up with cardiology as scheduled. Total time taken is greater than 35 minutes. Hospital course This is a 49-year-old male who was recently admitted with chest pain, negative troponins, ruled out ACS. Patient with ongoing hypertension does not take medications for this along with other risks involving lifestyle with drinking and diet. Patient is being started on low-dose losartan per cardiology and underwent stress testing which was negative. Patient has been cleared by consul tatbaltazar and would like to go home. Please refer to consultation notes for further HPI. Currently no reports of chest pain, shortness of breath, or palpitations. Patient is afebrile. No reports of nausea or vomiting and patient is tolerating diet. Patient will be discharged home today. Physical exam: Gen: This is a 49-year-old male who is awake, alert and oriented x 3, well- developed, obese HEENT: Head is atraumatic, normocephalic. Pupils equal, round. Sclerae is anicteric. NECK: Supple. No JVD. No lymphadenopathy. No thyromegaly. LUNGS: Clear to auscultation. No wheezes or rhonchi. No intercostal retractions. HEART: Regular rate and rhythm. No murmur. ABDOMEN: Soft. Obese. Bowel sounds are present. No masses. No tenderness. EXTREMITIES: No pedal edema. No calf tenderness. NEUROLOGICAL: Patient is awake, alert and oriented x3. Cranial nerves 2 through 12 are grossly intact. Please refer to medication reconciliation sheet for a list of medications. The impression and plan of care has been dictated by Regla Ward, Nurse Practitioner as directed. Dr. Melida MD I have performed a history and examination and MDM of this patient, discussed the same with the dictator, and agree with the dictator's assessment and plan as written ,documented as a scribe. Based on total visit time, I have performed more than 50% of the visit. Patient Condition at Discharge: Fair Plan - Discharge Summary New Discharge Prescriptions: New Pantoprazole [Protonix] 40 mg PO AC-BRKFST #30 tab Losartan [Cozaar] 25 mg PO DAILY #30 tab Atorvastatin [Lipitor] 40 mg PO HS #30 tab Discharge Medication List Pantoprazole [Protonix] 40 mg PO AC-BRKFST #30 tab 05/19/24 [Rx] Atorvastatin [Lipitor] 40 mg PO HS #30 tab 05/20/24 [Rx] Losartan [Cozaar] 25 mg PO DAILY #30 tab 05/20/24 [Rx] Follow up Appointment(s)/Referral(s): Shaheed Sosa DO [STAFF PHYSICIAN] - 1 Week Lelia Jaimes DO [Primary Care Provider] - 1-2 days Patient Instructions/Handouts: Chest Pain (DC) Activity/Diet/Wound Care/Special Instructions: Activity limited until follow-up Follow-up with primary care provider on discharge Follow-up with cardiology as discussed after speaking with Dr. Sosa Continue taking Protonix daily Recommend heart healthy diet Recommend lifestyle modifications Continue monitoring blood pressure daily after 20 minutes of relaxing and sitting up preferably same time each day and keep a diary of all readings for primary and cardiology follow-up Discharge Disposition: HOME SELF-CARE
== END 2024-05-20 18:25 | disposition home or self-care (01) ==
LOC: EC 18:04 → 6NMEDSUR 19:39
PROVIDERS: ADMIT Hospitalist; ATTEND Hospitalist
DX: R07.89 Other chest pain (principal); I10 Essential (primary) hypertension; E78.5 Hyperlipidemia, unspecified; K21.9 Gastro-esophageal reflux disease without esophagitis; F10.90 Alcohol use, unspecified, uncomplicated; E66.9 Obesity, unspecified; Z68.30 Body mass index [BMI] 30.0-30.9, adult; Z88.0 Allergy status to penicillin; Z91.013 Allergy to seafood; Z91.048 Other nonmedicinal substance allergy status; Z82.49 Family history of ischemic heart disease and other diseases of the circulatory system
CPT/HCPCS: 99285; 36415; 93005; 93306; 93351; 80061; 80053; 83690; 83735; 84484; 85025; 85610; 85730; 81003; 71046; G0378 ×3; Q9957